=== PATIENT | female | born 1995 | race Caucasian/White ===

== ENCOUNTER → 2024-07-12 13:41 | Outpatient (REF) | payer OTHER, SELFPAY | LOC: HWRAD 13:41 | PROVIDERS: ATTENDING PHYSICIAN Nurse Practitioner Family; FAMILY PHYSICIAN Nurse Practitioner Adult Health | DX: Z34.90 Encounter for supervision of normal pregnancy, unspecified, unspecified trimester (principal) | CPT/HCPCS: 76801 ==

== ENCOUNTER → 2024-08-05 06:52 | Outpatient (REF) | payer OTHER, BC, SELFPAY | LOC: PNTC 06:52 | PROVIDERS: ATTENDING PHYSICIAN Student in an Organized Health Care Education/Training Program | DX: Z36.0 Encounter for antenatal screening for chromosomal anomalies (principal); Z36.82 Encounter for antenatal screening for nuchal translucency | CPT/HCPCS: 36415; 76801; 76813 ==

== ENCOUNTER → 2024-08-19 10:40 | Outpatient (REF) | payer OTHER, BC, SELFPAY | LOC: PNTC 10:40 | PROVIDERS: ATTENDING PHYSICIAN Student in an Organized Health Care Education/Training Program | DX: O99.210 Obesity complicating pregnancy, unspecified trimester (principal) | CPT/HCPCS: 76805 ==

== ENCOUNTER → 2024-09-17 10:13 | Outpatient (REF) | payer OTHER, BC, SELFPAY | LOC: PNTC 10:13 | PROVIDERS: ATTENDING PHYSICIAN Student in an Organized Health Care Education/Training Program | DX: O99.210 Obesity complicating pregnancy, unspecified trimester (principal) | CPT/HCPCS: 76811 ==

== ENCOUNTER → 2024-11-05 09:29 | Outpatient (REF) | payer OTHER, BC, SELFPAY | LOC: PNTC 09:29 | PROVIDERS: ATTENDING PHYSICIAN Obstetrics & Gynecology | DX: O99.210 Obesity complicating pregnancy, unspecified trimester (principal) | CPT/HCPCS: 76816 ==

== ENCOUNTER → 2024-12-17 09:25 | Outpatient (REF) | payer OTHER, BC, SELFPAY | LOC: PNTC 09:25 | PROVIDERS: ATTENDING PHYSICIAN Obstetrics & Gynecology | DX: O99.210 Obesity complicating pregnancy, unspecified trimester (principal) | CPT/HCPCS: 76816 ==

== ENCOUNTER → 2025-01-15 10:19 | Outpatient (REF) | payer OTHER, BC, SELFPAY | LOC: PNTC 10:19 | PROVIDERS: ATTENDING PHYSICIAN Obstetrics & Gynecology | DX: O32.9XX0 Maternal care for malpresentation of fetus, unspecified, not applicable or unspecified (principal) | CPT/HCPCS: 76815 ==

== ENCOUNTER → 2025-01-30 10:55 | Outpatient (REF) | payer OTHER, BC, SELFPAY | LOC: PNTC 10:55 | PROVIDERS: ATTENDING PHYSICIAN Obstetrics & Gynecology | DX: Z34.90 Encounter for supervision of normal pregnancy, unspecified, unspecified trimester (principal) | CPT/HCPCS: 76815 ==

== ENCOUNTER → 2025-02-10 10:24 | Outpatient (REF) | payer OTHER, BC, SELFPAY | LOC: PNTC 10:24 | PROVIDERS: ATTENDING PHYSICIAN Student in an Organized Health Care Education/Training Program | DX: O48.0 Post-term pregnancy (principal) | CPT/HCPCS: 59025; 76815 ==

== ENCOUNTER 2025-02-12 22:31 | Inpatient (IN) | payer BC, OTHER, SELFPAY ==
[2025-02-12 22:39] VITALS: BMI 41.4
[2025-02-12 22:50] VITALS: BP 123/81
[2025-02-12] MEDS: LR 1000 IV (23:45)
[2025-02-12] MEDS: PENICILLIN 110 UNITS IV (23:45)
[2025-02-12] MEDS: FLUSH (NSS) 1 FLUSH IV (23:49)
[2025-02-12 23:50] LABS: Hematocrit 36.7 % (37.0-47.0); Hemoglobin 12.7 g/dL (12.0-16.0); Mean Corp Hgb Conc. 34.6 g/dL (33.0-37.0); Mean Corpuscular Volume 85.3 fL (81.0-99.0); Nucleated Red Blood Cells % 0 %; Platelet Count 233 10^3/uL (130-400); Red Cell Dist. Width 13.2 % (11.5-14.5)
[2025-02-13] MEDS: PENICILLIN 55 UNITS IV ×5 (03:32→19:26)
[2025-02-13] MEDS: FLUSH (NSS) 1 FLUSH IV (07:16)
[2025-02-13] MEDS: PITOCIN 30 UNITS/NSS 500 ML IV ×2 (07:22→23:50)
[2025-02-13] MEDS: PRENATAL PLUS 1 TABLET PO (07:22)
[2025-02-13] MEDS: FENTANYL/BUPIVACAINE 100 EPIDURAL (14:08)
[2025-02-13] MEDS: SUBLIMAZE 100 MCG EPIDURAL (14:08)
[2025-02-13] MEDS: LR 1000 IV (19:27)
[2025-02-13] MEDS: BICITRA 30 ML PO (22:11)
[2025-02-13] MEDS: TYLENOL 975 MG PO (22:11)
[2025-02-13] MEDS: ANCEF 10 IV (22:30)
[2025-02-13] MEDS: ZITHROMAX INFUSION 250 IV (22:37)
[2025-02-13] MEDS: PENICILLIN IV (23:00)
[2025-02-14] MEDS: TORADOL 15 MG IV ×4 (05:58→23:50)
[2025-02-14 06:09] LABS: Hematocrit 31.4 % (37.0-47.0); Hemoglobin 10.8 g/dL (12.0-16.0); Mean Corp Hgb Conc. 34.4 g/dL (33.0-37.0); Mean Corpuscular Volume 86.7 fL (81.0-99.0); Platelet Count 202 10^3/uL (130-400); Red Cell Dist. Width 13.0 % (11.5-14.5)
--- NOTE | 2025-02-14 07:25 | W.PN.ANS.POP ---
Anesthesia Post Operative
- Anesthesia Post Op Note
Vital Signs Stable-See Nursing Note: Yes
Airway Patent: Yes
Adequate Pain Control: Yes
Change in Mental Status: No
Current Postoperative Nausea & Vomiting: No
Anesthesia Complications: No
General Anesthetic Recall: No (n/a c sect)
Unplanned Admission: No
Post Op Hydration Adequate: Yes
[2025-02-14] MEDS: PRENATAL PLUS 1 TABLET PO (07:37)
[2025-02-14] MEDS: COLACE 100 MG PO ×2 (07:37→21:13)
[2025-02-14 11:17] LABS: Syphilis/T. pallidum Ab Reflex Negative (Negative)
[2025-02-15] MEDS: MOTRIN 600 MG PO ×3 (05:54→19:47)
[2025-02-15] MEDS: COLACE 100 MG PO ×2 (08:26→19:47)
[2025-02-15] MEDS: PRENATAL PLUS 1 TABLET PO (08:26)
[2025-02-16] MEDS: MOTRIN 600 MG PO (05:42)
[2025-02-16] MEDS: COLACE 100 MG PO (08:43)
[2025-02-16] MEDS: PRENATAL PLUS 1 TABLET PO (08:43)
--- NOTE | 2025-02-16 08:48 | W.DS.TRANS ---
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
-
Discharge Instructions:
Discharge Diagnosis/Procedures primary cs, non reass testing
Instructions:
Stand-Alone Forms: LDRP Delivery
Changes to Home Medications: No
Discharge Medications:
DC Medications w/original date entered in [employer]
prenat.vits,jaycee,yzd-pqai-[id number] 1 tab PO DAILY 02/12/25
Home Medication Changes
Pending Results: No
Total time spent discharging patient (in min): 15
== END 2025-02-16 09:48 | disposition home or self-care (01) | DRG 788 ==
LOC: LDRP 22:31
PROVIDERS: Obstetrics & Gynecology; ADMITTING PHYSICIAN Obstetrics & Gynecology
PROC: 10D00Z1 Extraction of Products of Conception, Low, Open Approach (ICD-10-PCS; 2025-02-13)
DX: O42.02 Full-term premature rupture of membranes, onset of labor within 24 hours of rupture (principal); Z3A.41 41 weeks gestation of pregnancy; Z37.0 Single live birth; O48.0 Post-term pregnancy; O99.214 Obesity complicating childbirth; O99.824 Streptococcus B carrier state complicating childbirth; O76 Abnormality in fetal heart rate and rhythm complicating labor and delivery
CPT/HCPCS: 36415; 85025; 85027; 86780; 86850; 86900; 86901; 88307